=== PATIENT | male | born 1950 | race Caucasian/White ===

== ENCOUNTER → 2017-09-20 | Outpatient (CLI) | payer MEDICARE, OTHER ==
[~2017-09-20] MED LIST: AMBIEN 5 MG TABL5 M1 PO; CIPRO250 M1 PO; FLAGYL500 MG PO; HYDROCODON-ACE1 EAC7; HYDROCODON-ACE1 EAC7 PER TUBE; NICODERM CQ1 EAC1 TD; PHENERGAN 25 MG25 M1 PO; SSD CREAM 1% 5050 GM TOP; ZOFRAN SUSP4 MG/5 ML
--- NOTE | 2017-10-03 23:40 | ONC ---
[place] [address] RADIATION ONCOLOGY NOTE Name: IVETT WHITE Room: [facility]#: [id number] Admission: 09/20/17 Attend Phys: Arnoldo Canales MD Discharge: Date of : 46 Report #: [id number] THIS REPORT FOR: //name// CC: Arnoldo Araiza MD DATE OF SERVICE: 09/20/2017 REFERRING PHYSICIANS: Christopher Gill MD; Laquita Tee MD; and Alex Araiza MD. [facility] phone is [phone]. 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 The radiation treatments were completed on 07/04/2013. INTERVAL NOTE: The patient has a good appetite. He is eating well. He is still in the process of getting dentures. He is edentulous. He is eating soft foods such as oatmeal and bananas. MEDICATIONS: Atorvastatin. SOCIAL HISTORY: The patient is retired. He is . He has a daughter. Cigarettes: he quit smoking in January 2014. Prior to quitting, he had about a 06-escw-rmer smoking history. REVIEW OF SYSTEMS: RESPIRATORY: Breathing was baseline. He was not short of breath during his appointment. MUSCULOSKELETAL: He had good range of motion of his upper extremities. PHYSICAL EXAMINATION: VITAL SIGNS: The patient weighed 255.8 pounds on 09/20/2017 and 260.8 pounds on 04/19/2017, on 09/20/2017, blood pressure was 164/88, pulse 80, and respirations 20. LYMPH NODES: He had no palpable cervical or supraclavicular lymphadenopathy. HEAD, EYES, EARS, NOSE, AND THROAT: Mouth had no suspicious visible lesions or suspicious palpable lesions. HEART: Had a regular rate and rhythm without murmur. LUNGS: were clear to auscultation. LABORATORY DATA: TSH was 1.63. [place] [address] RADIATION ONCOLOGY NOTE Name: IVETT WHITE Room: [facility]#: [id number] Admission: 09/20/17 Attend Phys: Arnoldo Canales MD Discharge: Date of : 46 Report #: [id number] RADIOLOGIC DATA: He had a low dose chest CT in 04/02/2017, which showed no soft tissue pulmonary nodules, he had some mild coronary artery calcifications and he was referred to Dr. Gill to manage his coronary artery calcifications. ASSESSMENT AND PLAN: 1. History of head and neck cancer- There is no evidence of head and neck cancer at this time. The patient was given a requisition for a TSH level in April 2018, and he was asked to schedule a followup appointment to see me afterwards. 2. Lung screening- The patient will have a low dose chest CT ordered in March 2017, and he will be asked to schedule a follow up appointment to see me afterwards. 3. Hyperlipidemia. The patient takes atorvastatin that is managed by his referring physicians. Thank you for allowing me to participate in the care of this patient. <ELECTRONICALLY SIGNED> By: Arnoldo Canales MD 10/03/17 2340 [id number] [id number] Canales MD /nt
== END ==
LOC: M.RTH 01:00
DX: Z08 Encounter for follow-up examination after completed treatment for malignant neoplasm (principal); Z12.2 Encounter for screening for malignant neoplasm of respiratory organs; E78.5 Hyperlipidemia, unspecified; Z85.89 Personal history of malignant neoplasm of other organs and systems; Z87.891 Personal history of nicotine dependence

== ENCOUNTER → 2018-05-11 | Outpatient (CLI) | payer MEDICARE, OTHER ==
--- NOTE | 2018-05-22 11:06 | ONC ---
[facility] [address] [place] [address] RADIATION ONCOLOGY NOTE Name: IVETT WHITE Room: [facility].#: [id number] Admission: 05/11/18 Attend Phys: Arnoldo Canales MD Discharge: Date of : 46 Report #: [id number] THIS REPORT FOR: //name// CC: Christopher Woodson MD DATE OF SERVICE: 05/11/2018 RADIATION ONCOLOGY FOLLOWUP NOTE [facility] phone is [phone]. REFERRING PHYSICIANS: Include: 1. Candelaria Ayala M.D. 2. Christopher Gill M.D. 3. Laquita Tee M.D. 4. Alex Araiza M.D. 5. David Woodson M.D. 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 The radiation treatments were completed on 07/04/2013. INTERVAL NOTE: The patient has a good appetite. He is eating well. He eats soft foods. He is using his upper dentures. He still cannot use his lower dentures too well because he still sometimes has small tooth fragments that come out. He hopes to be able to get lower dentures in the future. He says he was planning on following up with his personal health coach. He may be returning back to his previous personal health coach, Dr. Woodson. MEDICATIONS: Atorvastatin, loratadine, vitamin B1 and a medication for arthritis. SOCIAL HISTORY: The patient is retired. He is . He has a daughter. Cigarettes: he quit smoking in 01/2014. Prior to quitting, he had about a 28-iwmd-itzk smoking history. REVIEW OF SYSTEMS: RESPIRATORY: Breathing was baseline. He was not short of breath during his appointment. MUSCULOSKELETAL: He had good range [place] [address] RADIATION ONCOLOGY NOTE Name: IVETT WHITE Room: [facility]#: [id number] Admission: 05/11/18 Attend Phys: Arnoldo Canales MD Discharge: Date of : 46 Report #: [id number] PHYSICAL EXAMINATION: VITAL SIGNS: The patient weighed 253.8 pounds on 05/11/2018. He was 255.8 pounds on 03/20/2018. On 05/11/2018, blood pressure was 160/86, pulse 74, respirations 18 and oxygen saturation 94%. LYMPH NODES: The patient had no palpable cervical or supraclavicular lymphadenopathy. HEAD, EYES, EARS, NOSE AND THROAT EXAMINATION: Mouth had no suspicious visible lesions or suspicious palpable lesions. HEART: Had a regular rate and rhythm, without murmur. LUNGS: were clear to auscultation. LABORATORY DATA: From 05/03/2018, TSH was 1.45, which was within normal limits. RADIOLOGIC DATA: He had also a low-dose screening chest CT on 04/22/2018, which showed no soft tissue pulmonary nodules. The radiology report receommended continued annual low-dose CT screening of the lung and there were some moderate coronary artery calcifications and mild aortic valve calcifications. ASSESSMENT AND PLAN: 1. History of head and neck cancer- There is no evidence of head and neck cancer at this time. A requisition was given for a TSH in about a year and he was asked to schedule a follow up appointment to see me afterwards. 2. History of smoking and lung screening- The patient had a requisition for a low-dose chest CT in one year without contrast. He will be asked to schedule a follow up appointment to see me afterwards. 3. Coronary artery calcifications- The patient continues to follow up with his personal health coach with regards to this issue. 4. Hyperlipidemia- The patient takes atorvastatin and that is managed by his referring physicians. Thank you for allowing me to participate in the care of this patient. <ELECTRONICALLY SIGNED> By: Arnoldo Canales MD 05/22/18 1106 1227 1314Dkyleigh Canales MD /nt
== END ==
LOC: M.RTH 05:10
DX: Z12.2 Encounter for screening for malignant neoplasm of respiratory organs (principal); E78.5 Hyperlipidemia, unspecified; I25.84 Coronary atherosclerosis due to calcified coronary lesion; Z79.899 Other long term (current) drug therapy; Z87.891 Personal history of nicotine dependence; Z85.89 Personal history of malignant neoplasm of other organs and systems

== ENCOUNTER → 2019-05-19 | Outpatient (CLI) | payer OTHER ==
--- NOTE | 2019-05-28 18:28 | ONC ---
[place] [address] RADIATION ONCOLOGY NOTE Name: IVETT WHITE Room: [facility]#: [id number] Admission: 05/19/19 Attend Phys: Arnoldo Canales MD Discharge: Date of : 46 Report #: [id number] THIS REPORT FOR: //name// CC: Arnoldo Woodson MD DATE OF SERVICE: 05/19/2019 RADIATION ONCOLOGY FOLLOWUP NOTE REFERRING PHYSICIANS: Include Christopher Gill MD; Laquita Tee MD; Alex Araiza MD; David Woodson MD. [facility] phone is [phone]. 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 Radiation treatments were completed on 07/04/2013. INTERVAL NOTE: The patient has a good appetite. He eats soft foods. He tends to not wear his upper dentures because they do not fit too well and he has not had them adjusted so far. He does use his lower dentures and he has been gaining weight. MEDICATIONS: Loratadine, atorvastatin, lisinopril. He takes also meloxicam and amlodipine. SOCIAL HISTORY: The patient is retired. He is . He has a daughter. Cigarettes: he quit smoking in 01/2014. He has about a 17-dhld-hzba smoking history. REVIEW OF SYSTEMS: RESPIRATORY: Breathing was baseline. He was not short of breath during his appointment. MUSCULOSKELETAL: He had a good range of motion of his upper extremities. PHYSICAL EXAMINATION: VITAL SIGNS: The patient weighed 262.8 pounds on 05/19/2019, 233.8 pounds on 05/11/2018. On 05/19/2019, blood pressure was 151/76, pulse 73, oxygen saturation was 92%, respirations were 20. LYMPH NODES: He had no palpable cervical [place] [address] RADIATION ONCOLOGY NOTE Name: IVETT WHITE Room: [facility]#: [id number] Admission: 05/19/19 Attend Phys: Arnoldo Canales MD Discharge: Date of : 46 Report #: [id number] HEAD, EYES, EARS, NOSE AND THROAT: Mouth had no suspicious visible lesions or suspicious palpable lesions. HEART: Had a regular rate and rhythm without murmur. LUNGS: were clear to auscultation. LABORATORY DATA: TSH was 1.81 on 05/01/2019 and that was drawn at [facility]. RADIOLOGIC DATA: He had a low dose chest CT at the [facility] on 04/28/2019, which showed no pulmonary nodules and continued annual low dose CT lung screening was recommended. He had mild cardiomegaly with some coronary artery and mild aortic valve calcifications again noted. ASSESSMENT AND PLAN: 1. History of head and neck cancer- There is no evidence of head and neck cancer at this time. A requisition was given for a TSH in about a year. The patient was asked to schedule a follow up appointment to see me afterwards. 2. History of smoking and screening lung CT- The patient had a requisition written for a low dose chest CT in about 1 year and he was asked to schedule a followup appointment to see me afterwards. 3. Coronary artery calcifications. The patient continues to follow up with his hadoop developer and primary care physician with regards to that issue. 4. Hyperlipidemia- The patient takes atorvastatin and that is managed by his referring physicians. Thank you for allowing me to participate in the care of this patient. <ELECTRONICALLY SIGNED> By: Arnoldo Canales MD 05/28/19 1828 1213 2044Dkyleigh Canales MD /nt
== END ==
LOC: M.RTH 05-05 09:00
DX: Z08 Encounter for follow-up examination after completed treatment for malignant neoplasm (principal); Z85.89 Personal history of malignant neoplasm of other organs and systems; I25.10 Atherosclerotic heart disease of native coronary artery without angina pectoris; E78.5 Hyperlipidemia, unspecified; Z87.891 Personal history of nicotine dependence; Z12.12 Encounter for screening for malignant neoplasm of rectum

== ENCOUNTER → 2020-05-17 | Outpatient (CLI) | payer OTHER ==
--- NOTE | ~2020-05-17 | ONC ---
[place] [address] RADIATION ONCOLOGY NOTE Name: IVETT WHITE Room: [facility]#: [id number] Admission: 05/17/20 Attend Phys: Arnoldo Canales MD Discharge: Date of : 46 Report #: [id number] THIS REPORT FOR: //name// CC: Arnoldo Ayala DATE OF SERVICE: 05/17/2020 RADIATION ONCOLOGY FOLLOWUP NOTE REFERRING PHYSICIANS: Include Candelaria Ayala MD; Christopher Gill MD; Laquita Tee MD; Alex Araiza MD; and David Woodson MD. [facility] phone is [phone]. 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 Radiation treatments were completed on 07/04/2013. INTERVAL NOTE: The patient has a good appetite. He eats soft foods. He has dentures, but they need to be modified. The patient said that the [facility] dental clinic is closed because of the COVID-19 pandemic, so he seems to do fine, eating soft foods without dentures and he is gaining weight. MEDICATIONS: Include loratadine, atorvastatin, lisinopril. He also takes meloxicam and amlodipine. SOCIAL HISTORY: The patient is retired. He is . He has a daughter. Cigarettes, he quit smoking in 01/2014. He has about a 96-wpnz-boib smoking history. REVIEW OF SYSTEMS: RESPIRATORY: Breathing was baseline. He was not short of breath during his appointment. MUSCULOSKELETAL: He has good range of motion of his upper extremities. PHYSICAL EXAMINATION: VITAL SIGNS: Weight was 269.4 pounds on 05/17/2020 and 262.8 pounds on 05/19/2019 and on 05/17/2020 blood pressure is 135/79, pulse 87, temperature 98.6 degrees Fahrenheit, respirations 20, oxygen saturation 95%. LYMPH NODES: He had no palpable cervical or supraclavicular lymphadenopathy. HEAD, EYES, EARS, NOSE AND THROAT EXAMINATION: Mouth had no suspicious visible lesions or suspicious palpable lesions. HEART: Had a regular rate and rhythm without murmur. LUNGS: [place] [address] RADIATION ONCOLOGY NOTE Name: IVETT WHITE Room: [facility]#: [id number] Admission: 05/17/20 Attend Phys: Arnoldo Canales MD Discharge: Date of : 46 Report #: [id number] LABORATORY DATA: The patient's TSH on 05/03/2020 at [facility] was 3.22 and he also had a screening chest CT performed at [facility] on 05/16/2020 and that showed no noncalcified pulmonary nodules that were identified and continued annual low dose CT lung screening was recommended. He has persistent mild cardiomegaly with at least moderate coronary artery and mild aortic valve calcifications again noted. ASSESSMENT AND PLAN: 1. History of head and neck cancer. There is no evidence of head and neck cancer. A requisition was given to the patient for TSH in about 1 year. The patient was asked to schedule a followup appointment to see me afterwards. 2. History of smoking. On chest CT, the patient had a requisition written for low dose screening chest CT in about 1 year and he was asked to follow up with me afterwards. 3. Coronary artery calcifications. The patient continues to follow up with his primary care physician's clinic. He indicated that both his chiseler head and primary care physician have since his last followup appointment with me, but he continues to follow up with [facility] that follows these issues and he says they will be signing him another physician. 4. Hyperlipidemia. The patient takes atorvastatin and that is managed by his referring physicians. Thank you for allowing me to participate in the care of this patient. By: 1125 1216Arnoldo Canales MD /tari
== END ==
LOC: M.RTH 09:00
PROVIDERS: ATTEND Radiology Radiation Oncology
DX: Z08 Encounter for follow-up examination after completed treatment for malignant neoplasm (principal); I25.10 Atherosclerotic heart disease of native coronary artery without angina pectoris; E78.5 Hyperlipidemia, unspecified; Z92.21 Personal history of antineoplastic chemotherapy; Z85.818 Personal history of malignant neoplasm of other sites of lip, oral cavity, and pharynx; Z85.89 Personal history of malignant neoplasm of other organs and systems

== ENCOUNTER → 2021-05-21 | Outpatient (CLI) | payer OTHER | LOC: M.CT 15:43 | PROVIDERS: ATTEND Radiology Radiation Oncology | DX: Z12.2 Encounter for screening for malignant neoplasm of respiratory organs (principal); I77.810 Thoracic aortic ectasia; I25.10 Atherosclerotic heart disease of native coronary artery without angina pectoris; M47.814 Spondylosis without myelopathy or radiculopathy, thoracic region; Z87.891 Personal history of nicotine dependence ==